=== PATIENT | male | born 1950 | race Caucasian/White ===

== ENCOUNTER → 2017-01-28 | Outpatient (CLI) | payer BC, OTHER ==
[~2017-01-28] MED LIST: IOPAMIDOL (ISOVUE-300) 100 ML BTL ONE
== END ==
LOC: CIMAGING 13:16
PROVIDERS: ATTEND Otolaryngology
DX: E21.3 Hyperparathyroidism, unspecified (principal); E04.1 Nontoxic single thyroid nodule
CPT/HCPCS: 70492-PO; Q9967

== ENCOUNTER 2017-02-10 07:47 | Observation (INO) | payer BC, OTHER ==
[2017-02-10] MEDS ORDERED: LR 1,000 ML IV ONE (08:42)
[2017-02-10] MEDS ORDERED: LIDOCAINE 1% 2 ML INJ ID PRN (08:42)
[2017-02-10] MEDS ORDERED: LIDO/EPI 1% **Not for Epidural 20 ML MDV ONE (10:01)
[2017-02-10] MEDS ORDERED: CLINDAMYCIN 900 MG/DEXTROSE 50 ML IV ONE (10:35)
--- NOTE | 2017-02-10 10:37 | PDHPUP ---
History & Physical Update H&P update statement: This history and physical update is based on an assessment of the patient which was completed after admission or registration (within 24 hours), but prior to the surgery/procedure. H&P update: H&P reviewed & patient examined
[2017-02-10] MEDS ORDERED: fentaNYL 100 MCG/2 ML INJ ONE ×2 (11:44→12:32)
[2017-02-10] MEDS ORDERED: ROCURONIUM 50 MG/5 ML VIAL ONE (11:45)
[2017-02-10] MEDS ORDERED: PROPOFOL 200 MG/20 ML VIAL ONE (11:45)
[2017-02-10] MEDS ORDERED: SUCCINYLCHOLINE CHLORIDE*ANESTHESIA ONLY*200 MG/10 ML SYR IVP ONE (11:53)
[2017-02-10] MEDS ORDERED: DEXAMETHASONE 4 MG/ML VIAL ONE (12:19)
[2017-02-10] MEDS ORDERED: ONDANSETRON 4 MG/2 ML VIAL ONE (12:19)
--- NOTE | 2017-02-10 12:29 | PDANEPAE ---
ANE History of Present Illness Patient presents for Parathyroid removal ANE Past Medical History - Cardiovascular History Hx Hypertension: Yes Hx Arrhythmias: No Hx Chest Pain: No Hx Coronary Artery / Peripheral Vascular Disease: No Hx CHF / Valvular Disease: No Hx Palpitations: No Cardiovascular History Comment: POSS CO 22 YRS AGO - Pulmonary History Hx COPD: No Hx Asthma/Reactive Airway Disease: No Hx Recent Upper Respiratory Infection: No Hx Oxygen in Use at Home: No Hx Sleep Apnea: Yes Sleep Apnea Screening Result - Last Documented: Positive - Neurologic History Hx Cerebrovascular Accident: No Hx Seizures: No Hx Dementia: No Neurologic History Comment: OCCAS HEADACHES - Endocrine History Hx Diabetes: Yes Endocrine History Comment: DM II - Renal History Hx Renal Disorders: No - Liver History Hx Hepatic Disorders: No - Neurological & Psychiatric Hx Hx Neurological and Psychiatric Disorders: Yes Neurological / Psychiatric History Comment: ANXIETY & DEPRESSION - Cancer History Hx Cancer: No - Congenital Disorder History Hx Congenital Disorders: No - GI History Hx Gastrointestinal Disorders: Yes Gastrointestinal History Comment: HIATAL HERNIA. ACID REFLUX - Other Health History Other Health History: NEG - Chronic Pain History Chronic Pain: Yes (KNEES & HIPS OSTEOARTHRITIS) - Surgical History Prior Surgeries: ELSY TKA W/REDO ON L. R AMIE. CATARACT L. DETACHED RETINA. EGD. TONSILLECTOMY & ADENOIDECTOMY ANE Review of Systems - Exercise capacity METS (RN): 4 METS ANE Patient History - Allergies Allergies/Adverse Reactions: hydrocodone bitartrate [From Vicodin] Allergy (Severe, Verified 01/26/10 12:25) BAD DREAMS, "FITFUL" morphine [Morphine] Allergy (Severe, Verified 01/26/10 12:27) HALLUCINATIONS Penicillins Allergy (Severe, Verified 01/26/10 12:09) ITCHY, SOB, EDEMA oxycodone HCl [From Percocet] Allergy (Intermediate, Verified 01/26/10 12:26) ITCHY - Home Medications Home medications: home medication list seen and reviewed Home Medications: Aspirin 02/06/17 [Last Taken 1 Week Ago] Diclofenac Sodium 02/06/17 [Last Taken 02/09/17] FLUoxetine 02/06/17 [Last Taken 02/09/17] Invokana 02/06/17 [Last Taken 02/09/17] Labetalol HCl 02/06/17 [Last Taken 02/10/17 08:30] Lisinopril 02/06/17 [Last Taken 02/10/17 08:30] Metformin HCl 02/06/17 [Last Taken 02/09/17] Pantoprazole Sodium 02/06/17 [Last Taken 02/07/17] Probiotic 02/06/17 [Last Taken 02/07/17] Simvastatin 02/06/17 [Last Taken 02/07/17] traZODone 02/06/17 [Last Taken 02/09/17] - NPO status NPO Status: no food or drink >8 hours NPO Since - Liquids (Date): 02/09/17 NPO Since - Liquids (Time): 21:00 NPO Since - Solids (Date): 02/09/17 NPO Since - Solids (Time): 21:00 - Anes Hx Anes Hx: no prior problems - Smoking Hx Smoking Status: Former smoker - Family Anes Hx Family Hx Anesthesia Complications: NEG ANE Labs/Vital Signs - Vital Signs Blood Pressure: 167/103 Heart Rate: 83 Respiratory Rate: 16 O2 Sat (%): 93 Height: 180.34 cm Weight: 98.974 kg ANE Physical Exam - Airway Neck exam: decreased ROM Mallampati Score: Class 2 Mouth exam: normal dental/mouth exam - Pulmonary Pulmonary: no respiratory distress - Cardiovascular Cardiovascular: regular rate and rhythym - ASA Status ASA Status: II ANE Anesthesia Plan Anesthesia Plan: general endotracheal anesthesia (RBA discussed)
[2017-02-10] MEDS ORDERED: LABETALOL HCL 5 MG/ML 20 ML MDV ONE (13:17)
[2017-02-10] MEDS ORDERED: ONDANSETRON 4 MG/2 ML VIAL IVP PRN ×2 (13:38→14:04)
[2017-02-10] MEDS ORDERED: LR 500 ML IV PRN (13:38)
[2017-02-10] MEDS ORDERED: NALOXONE HCL 0.4 MG/ML INJ IVP PRN (13:38)
[2017-02-10] MEDS ORDERED: SUGAMMADEX SODIUM 200 MG/2 ML VIAL IVP ONE (13:46)
[2017-02-10] MEDS ORDERED: CALCIUM CARBONATE 500 MG TAB PO PRN (14:11)
[2017-02-10] MEDS ORDERED: D5W 1/2 NS W/ 20 KCl/L 1,000 ML IV SCH (14:15)
--- NOTE | 2017-02-10 14:51 | POSTANESTH ---
Post Anesthetic Evaluation Cardiovascular Status: Normal, Stable, Similar to Pre-Op Cond Respiratory Status: Normal, Stable Level of Consciousness/Mental Status: Can Participate in Eval Pain Control: Adequate, Prn Tx Ordered Nausea/Vomiting Control: Adequate, Prn Tx Ordered Complications Possibly Related to Anesthesia: None Noted (RMG 99, SBP close to pre-op. Unremarkable recovery.)
[2017-02-10] MEDS ORDERED: OXYCODONE/APAP 5/325 TAB ONE (15:00)
[2017-02-10] MEDS: OXYCODONE/APAP 5/325 TAB PO PRN ×2 (15:08→19:41)
[2017-02-10] MEDS ORDERED: hydrALAZINE 20 MG/ML VIAL IVP ONE (18:05)
--- NOTE | 2017-02-10 18:18 | POSTOPPROG ---
Post Op Note Date of Operation: 02/10/17 Surgeon: Didi Trujillo Cook Helper Dessert: izabela wall Anesthesiologist: maria c stanford Anesthesia: GET(General Endotracheal) Pre-op Diagnosis: primary hyperparathyroidism Post-op Diagnosis: same Procedure: MIRP, Right Findings: R inf adenoma, 500 mg, PTH 73-->18 Inf/Abcess present in the surg proc area at time of surgery?: No EBL: 50-100 Complications: none apparent
[2017-02-10 19:26] LABS: CALCIUM 10.2 mg/dL (8.5-10.4); CREATININE 0.9 mg/dL (0.7-1.3)
[2017-02-10 19:38] LABS: PTH INTACT NO MINERALS 28.2 pg/ml (10.8-79.4)
[2017-02-10] MEDS: LABETALOL HCL 100 MG TAB PO SCH (19:41)
[2017-02-10] MEDS: LISINOPRIL 40 MG TAB PO SCH (19:41)
--- NOTE | 2017-02-10 20:38 | PDGENHP ---
History and Physical - Chief Complaint Acute fatigue - History of Present Illness Primary service: Ear nose and throat Dr. Trujillo Reason for consultation: Acute worsening of chronic hypertension Primary care provider: Dr. Santiago Primary public service representative: Dr. Bartlett HPI: 66-year-old male presents with acute fatigue and associated dysarthria, shortness of breath, headaches onset of symptoms approximately 3 months ago and duration persistent thereafter. He was seen by his outpatient providers in found to have hypercalcemia, secondary to hyperparathyroidism secondary to a right parathyroid adenoma. He was scheduled for parathyroid resection by Dr. Trujillo on 02/10/2017. Patient last took his home antihypertensive medications on 02/09 AM. He reports that prior to this presentation, he had reduced his dosage of labetalol to 150 mg twice daily secondary to low systolic blood pressures. Reports that approximately 1 week ago, he was noticing elevated systolic blood pressures in the 140-150 range. He subsequently up titrated his labetalol dosage back to 300 mg twice daily. Following his surgery today, he is experiencing some pain located in his upper chest, lower throat. Reports that it is located exactly at the surgical site. It is somewhat exacerbated by palpation. It is somewhat alleviated by ice. History Information - Allergies/Home Medication List Allergies/Adverse Reactions: hydrocodone bitartrate [From Vicodin] Allergy (Severe, Verified 01/26/10 12:25) BAD DREAMS, "FITFUL" Penicillins Allergy (Severe, Verified 01/26/10 12:09) ITCHY, SOB, EDEMA morphine [Morphine] Allergy (Mild, Verified 02/10/17 15:00) HALLUCINATIONS Home Medications: Aspirin EC [Aspirin EC 325 mg (*)] 325 mg PO DAILY PRN 02/06/17 [Last Taken 1 Week Ago] Canagliflozin [Invokana] 300 mg PO DAILY 02/06/17 [Last Taken 02/09/17] Diclofenac Sodium 75 mg PO BID PRN 02/06/17 [Last Taken 1 Week Ago] Fluoxetine HCl [Prozac 40 mg] 40 mg PO DAILY 02/06/17 [Last Taken 02/09/17] Labetalol HCl [Trandate 100 mg (*)] 300 mg PO BID 02/06/17 [Last Taken 02/10/17 08:30] Lisinopril [Zestril 40 mg (*)] 40 mg PO BID 02/06/17 [Last Taken 02/10/17 08:30] Metformin HCl [Metformin 1000 mg] 1,000 mg PO BIDMEAL 02/06/17 [Last Taken 1 Week Ago] Pantoprazole Sodium [Protonix 40mg (*)] 40 mg PO HS 02/06/17 [Last Taken ] Simvastatin [Zocor] 40 mg PO HS 02/06/17 [Last Taken 02/09/17] traZODone [traZODONE 100MG (*)] 100 mg PO HS 02/06/17 [Last Taken 02/09/17] Herbals/Supplements -Info Only 1 ea PO DAILY 02/10/17 [Last Taken 02/09/17] I have personally reviewed and updated: family history, medical history, social history, surgical history - Past Medical History coronary artery disease (With previous [facility] in 2000), diabetes type 2, GERD, hypertension, hyperlipidemia Additional medical history: MARANDA on CPAP. Right inferior parathyroid adenoma. Degenerative disc disease. Asthma. Diverticulitis - Surgical History Additional surgical history: Right total hip replacement. Tonsillectomy. Right ACL - Family History Additional family history: Sibling with esophageal cancer, sibling with encephalitis - Social History Smoking Status: Former smoker Alcohol Use: Sober (Patient quit drinking alcoholic beverages 2 years ago) Drug Use: None Additional social history: He cares for his 2-year-old granddaughter Review of Systems ROS: 10pt was reviewed & negative except for what was stated in HPI & below Skin: Reports: other (Pain around neck) Neurological: Reports: headache Physical Exam Temp Pulse Resp BP Pulse Ox 36.7 C 100 18 151/98 H 93 02/10/17 19:00 02/10/17 19:00 02/10/17 19:00 02/10/17 19:00 02/10/17 19:00 O2 (L/minute) 8 Constitutional: no apparent distress, appears nourished, uncomfortable Eyes: PERRL, anicteric sclera, EOMI Ears, Nose, Mouth, Throat: moist mucous membranes, hearing normal, ears appear normal, no oral mucosal ulcers Cardiovascular: regular rate and rhythym, no murmur, rub, or gallop, No edema Respiratory: no respiratory distress, no rales or rhonchi, clear to auscultation Gastrointestinal: normoactive bowel sounds, soft, non-tender abdomen, no palpable masses Genitourinary: no bladder fullness, no bladder tenderness Skin: other (Incision site with minimal surrounding edema, no erythema, no active bleeding, minimal tenderness) Neurologic: AAOx3, sensation intact bilaterally, other (Mild intermittent dysarthria), No weakness Psychiatric: interacting appropriately, not anxious, not encephalopathic, thought process linear Lab Data & Imaging Review Calcium 10.2 mg/dL (8.5-10.4) 02/10/17 18:55 PTH Intact 28.2 pg/ml (10.8-79.4) 02/10/17 18:55 Calcium (PTH Intact) 10.2 mg/dL (8.5-10.4) 02/10/17 18:55 Creat (PTH Intact) 0.9 mg/dL (0.7-1.3) 02/10/17 18:55 Phosph (PTH Intact) 3.9 mg/dL (2.5-4.5) 02/10/17 18:55 Assessment & Plan Assessment: 66-year-old male presents with parathyroid adenoma, receiving elective surgery, complicated by postoperative hypertension Plan: 1. Hypertension. Acute worsening of chronic condition, new problem this provider, no further workup indicated. Most likely etiology of his postoperative hypertension is holding home medication since day prior, as well as postsurgical pain. -discussed with Dr. Trujillo, she reports to me that she attempted to control the patient's blood pressure with IV hydralazine as well as reinitiate his home medications, and his systolic blood pressure remains in the 150s -goal systolic blood pressures less than 160, continue home medications, hold off on further IV hydralazine at this time, given that there is no evidence of bleeding -continue to manage pain -home medications have been restarted at their normal dosages 2. Diabetes mellitus type 2. Chronic, reviewed outside records including [address] Didi Trujillo, in this note reveals the patient is on Invokana and metformin -would recommend holding Invokana immediately postoperatively as this can somewhat dehydrate a patient, it should be safe for him to resume this home medication in approximately 24 hours upon returning home -metformin re-initiated safely -check creatinine level in a.m. to ensure that creatinine is normal prior to discharge 3. Parathyroid adenoma. Status post prior thyroidectomy, Dr. Didi Trujillo is monitoring calcium levels, and will be the primary provider for this issue 4. Obstructive sleep apnea. Continue home CPAP tonight 5. Coronary artery disease. Reportedly chronic, patient reports [facility] in 2000 but his description of the event is somewhat unusual and is not entirely clear that the patient actually had a myocardial infarction -his description of exertional shortness of breath may be related to his hypercalcemia, but it could be related to either deconditioning or a stable anginal equivalent -discussed with the patient, recommended that he follow up with Dr. Santiago after this episode of care and have an outpatient stress test -recommend aspirin 81 mg until he is evaluated by Dr. Santiago, pending he does not have any bleeding episodes. Hospital Medicine service will sign off on this case, please contact hospital Medicine tomorrow at [phone] if further assistance is required.
[2017-02-10] MEDS ORDERED: traZODone 100 MG TAB PO SCH (21:00)
[2017-02-10] MEDS ORDERED: MELATONIN 3 MG TAB PO PRN (21:56)
[2017-02-10] MEDS: CLINDAMYCIN 150 MG CAP PO SCH (22:02)
[2017-02-11 04:50] LABS: ANION GAP 11 mEq/L (8-16); CALCIUM 9.9 mg/dL (8.5-10.4); CARBON DIOXIDE 25 mEq/l (22-31); CHLORIDE 100 mEq/L (97-110); CREATININE 0.8 mg/dL (0.7-1.3); GLOMERULAR FILTRATION RATE > 60; GLUCOSE 88 mg/dL (70-100); POTASSIUM 4.3 mEq/L (3.5-5.2); SODIUM 136 mEq/L (134-144)
[2017-02-11 05:02] LABS: PTH INTACT NO MINERALS 34.2 pg/ml (10.8-79.4)
[2017-02-11] MEDS: CLINDAMYCIN 150 MG CAP PO SCH (05:36)
[2017-02-11] MEDS ORDERED: metFORMIN HCL 500 MG TAB PO SCH (08:00)
[2017-02-11 08:14] VITALS: BP 150/86; PULSE 82; RESP 20; TEMP 97.8; O2SAT 96
[2017-02-11] MEDS: LABETALOL HCL 100 MG TAB PO SCH (08:34)
[2017-02-11] MEDS: LISINOPRIL 40 MG TAB PO SCH (08:35)
--- NOTE | 2017-02-11 08:38 | HOSPPROG ---
Hospitalist Progress Note Assessment/Plan: 66-year-old male presents with parathyroid adenoma, receiving elective surgery, complicated by postoperative hypertension *HTN home meds resumed bp a bit elevated this morning *DM2 resumed Invokana Metformin on hold *Parathyroid adenoma s/p thyroidectomy stable calcium levels did well w surgery *MARANDA CPAP *CAD recommend asa *Plan: dc home/ patient keeps a detailed record of his blood pressure and knows when to get f/u Subjective: Delmis is feeling well, has no complaints. Objective: Vital Signs Temp Pulse Resp BP Pulse Ox 36.6 C 82 20 150/86 H 96 02/11/17 08:00 02/11/17 08:00 02/11/17 08:00 02/11/17 08:00 02/11/17 08:00 Laboratory Results 02/11/17 04:21 02/10/17 02/11/17 02/12/17 05:59 05:59 05:59 Intake Total 1275 Output Total 30 Balance 1245 - Physical Exam Constitutional: no apparent distress, not in pain Eyes: PERRL Ears, Nose, Mouth, Throat: hearing normal Cardiovascular: regular rate and rhythym, no murmur, rub, or gallop Respiratory: no respiratory distress Gastrointestinal: normoactive bowel sounds Skin: warm, normal color Musculoskeletal: full muscle strength, no muscle tenderness Neurologic: AAOx3 Psychiatric: interacting appropriately, not anxious ICD10 Worksheet Patient Problems: Problems Problem Status Onset Hyperparathyroidism Acute
[2017-02-11] MEDS ORDERED: PANTOPRAZOLE SODIUM 40 MG TAB PO SCH (09:00)
[2017-02-11] MEDS ORDERED: FLUoxetine 20 MG CAP PO SCH (09:00)
[2017-02-11] MEDS ORDERED: ASPIRIN EC 81 MG TAB PO SCH (09:00)
--- NOTE | 2017-02-11 10:29 | SOAPPROG ---
SOAP Progress Note Assessment/Plan: Assessment: POD 1 R MIRP. DOing well, PTH 34, ca 9.2 this am. WIll d/c home. No abx. Has left over percocet from prev procedure so doesn't want more. RTC [address] talk to [address] Bartlett for about f/u for her HTN since surgery. Shoudl f/u with PCP within the week or two. Appreciate hospitalist consulting Plan: 02/11/17 10:27 02/11/17 10:29 Subjective: Doing well, swallowing well, voice good. No issues o/n. Wore home CPAP. Objective: AFVSS RA neck incision c/d/i no bleeding neck flat Vital Signs Temp Pulse Resp BP Pulse Ox 36.6 C 82 20 150/86 H 96 02/11/17 08:00 02/11/17 08:00 02/11/17 08:00 02/11/17 08:00 02/11/17 08:00 Laboratory Results 02/11/17 04:21 02/10/17 02/11/17 02/12/17 05:59 05:59 05:59 Intake Total 1275 Output Total 30 Balance 1245 - Pending Discharge Pending Discharge Within 24 Hours: Yes Pending Discharge Date: 02/12/17 Pending Discharge Time: 11:00 ICD10 Worksheet Patient Problems: Problems Problem Status Onset Hyperparathyroidism Acute - ICD10 Problem Qualifiers (1) Hyperparathyroidism
--- NOTE | 2017-02-11 17:30 | ASDISCHSUM ---
Discharge Information Plan Status:Home with No Needs Medically Cleared to Leave: Discharge Date:02/11/2017 11:45 AM CM D/C Disposition:Home, Routine, Self-Care ADT D/C Disposition:Home, Routine, Self-Care Projected Discharge Date:02/11/2017 11:45 AM Transportation at D/C:Family Discharge Delay Reason: Follow-Up Date:02/11/2017 11:45 AM Discharge Slot: Final Diagnosis: Placement Information Patient Contact Information Contact Name:FABIO Relationship: Address:[address] City:[place] [facility] Phone: [facility]/Zip Code:[place] [address] Email: Financial Information Financial Class:HMO and PPO Plans Primary Plan Desc:[employer] Primary Plan Number:[id number] Secondary Plan Desc:MEDICARE OUTPATIENT Secondary Plan Number:[id number] Assessment Information Intervention Information
--- NOTE | 2017-02-14 21:15 | GOP ---
[f rep st] OPERATIVE REPORT DATE OF OPERATION: 02/10/2017 SURGEON: Didi Trujillo MD FLOOR GRINDER: Pillo Singh MD ANESTHESIA: General. PREOPERATIVE DIAGNOSIS: Primary hyperparathyroidism. POSTOPERATIVE DIAGNOSIS: Primary hyperparathyroidism. PROCEDURE PERFORMED: Minimally invasive radioguided parathyroidectomy on the right. FINDINGS: The patient was found to have a right inferior parathyroid adenoma. On frozen section, t his was noted to be about 500 mg. his initial PTH was 73.8, which dropped to 18 at ten minutes post adenoma removal. The gamma probe background number was 150 and the ex-vivo adenoma number was 220. ESTIMATED BLOOD LOSS: Minimal. INDICATIONS: The patient is a very pleasant, 66-year-old man who has a history of primary hyperpara thyroidism worked up by his sap technical architect. He was referred to me for possible parathyroidectomy. He had a nondiagnostic sestamibi, as well as ultrasound but, on a 40 CT scan, he had what looked to be a 12 mm right inferior suspected parathyroid adenoma, so it was felt he would benefit from the a roby procedure, and he agreed. DESCRIPTION OF PROCEDURE: The patient was first seen in the preoperative area, where informed conse nt was obtained. He was then brought back to the operating room, where Anesthesia sedated and intub ated him. The bed was turned 180 degrees. A shoulder roll was placed. A universal timeout was per formed. The gamma probe was used to give the background numbers from the right shoulder, and this w as noted to be 150. After this had been confirmed, I then marked out his sternal notch, as well as t he cricoid, and then made a 3 cm incision in between these 2 maurer and injected about 4 cc of 1% lid ocaine with 1:200,000 epinephrine into this region. Even though shoulder roll was placed, he was no t able to extend his neck really at all which hindered our visualization a little bit, made the proc edure more difficult. After injection, he was then prepped and draped in a sterile fashion, and an incision was made through the skin, subcutaneous tissues, as well as the platysma using a 15 blade s calpel. Subplatysmal flap was elevated superiorly and inferiorly, and then a Weitlaner was placed f or visualization. Once this was done, the strap musculature was divided in the midline, and then thi s was released off the underlying thyroid gland on the right. A Stein retractor was used to retr act the strap musculature laterally and then peanuts, as well as manual traction, were used to lift up the right lobe of the thyroid. Blunt dissection was used to dissect down into the area of the burris spected parathyroid adenoma. It was somewhat difficult to visualize secondary to his inability to e xtend his neck, so this did create somewhat of a deep dissection area. We extended our dissection sl ightly superior, as inferiorly I did not find anything that looked suspicious. Then, on palpation of the thyroid, I palpated a very firm nodule located on the posterior aspect of the thyroid gland. T he thyroid gland was gently retracted using a [place] retractors, and this allowed me to visualize t he nodule that I felt. At this point, it was felt to be the parathyroid adenoma, and so a blunt diss ection using the Burlisher was used to release this from the surrounding thyroid gland, as well as t he surrounding tissues until it was completely released and removed from the field. It was placed o n the gamma probe separately and this gamma probe number came out to be 220. This was noted to be ob viously over 20% of the background number, and so it was felt that this would be diagnostic of a par athyroid adenoma. 10 minutes post adenoma removal, a PTH was drawn which we waited for and this cam e back as 18. So at this point with these 2 measurements accurately identifying a parathyroid adenom a, we decided to terminated the procedure. At this point, the wound was irrigated out copiously with normal saline. The recurrent laryngeal nerve was not visualized, but it was noted to be stimulatin g postoperatively. So, at this point, the right thyroid lobe was released and placed back in situ. T he strap musculature was closed using 3-0 Vicryl, and then the platysma and subcutaneous tissues wer e closed using 3-0 Vicryl in an interrupted fashion. The skin was closed using a 4-0 Monocryl in a running, subcuticular fashion. The wound was cleaned, and then dried, and then Mastisol was placed over the 2 skin edges, and then Steri-Strips were placed over the incision. At this point, the heath ent was turned back over to Anesthesia, where he was awakened, extubated, and taken to PACU in stabl e condition. There were no complications, and he tolerated the procedure well. All instrument coun ts were correct at the end the procedure. COMPLICATIONS: None. /[id number]/MODL
== END 2017-02-11 11:45 | disposition home or self-care (01) ==
LOC: F3E 07:47
PROVIDERS: ADMIT Otolaryngology; ATTEND Otolaryngology
PROC: 0GTR0ZZ Resection of Parathyroid Gland, Open Approach (ICD-10-PCS; principal; 2017-02-10 10:30)
CPT/HCPCS: 60500; 78808; A9500; G0378; J0330; J0360; J1100; J2405; J2704; J3010; J3490

== ENCOUNTER → 2018-09-19 | Outpatient (CLI) | payer OTHER | LOC: EDSTATUS 08:25 → EMCIMAGING 13:44 | PROVIDERS: ATTEND Nurse Practitioner Acute Care | DX: M51.36 Other intervertebral disc degeneration, lumbar region (principal); M43.16 Spondylolisthesis, lumbar region; I70.0 Atherosclerosis of aorta | CPT/HCPCS: 72100-PN ==

== ENCOUNTER → 2018-10-16 | Outpatient (CLI) | payer OTHER | LOC: EMCIMAGING 12:52 | DX: M89.312 Hypertrophy of bone, left shoulder (principal) | CPT/HCPCS: 73030-PN ==

== ENCOUNTER → 2018-10-30 | Outpatient (CLI) | payer OTHER | LOC: EMCIMAGING 10:58 | PROVIDERS: ATTEND Orthopaedic Surgery | DX: S46.012A Strain of muscle(s) and tendon(s) of the rotator cuff of left shoulder, initial encounter (principal) | CPT/HCPCS: 73221-PN ==